=== PATIENT | male | born 1985 | race Caucasian/White ===

== ENCOUNTER 2016-12-15 17:40 | Emergency (ER) | payer SELFPAY | END 2016-12-15 20:46 | disposition home or self-care (01) | LOC: ER1 17:40 | DX: S16.1XXA Strain of muscle, fascia and tendon at neck level, initial encounter (principal); V49.40XA Driver injured in collision with unspecified motor vehicles in traffic accident, initial encounter; Y92.410 Unspecified street and highway as the place of occurrence of the external cause | CPT/HCPCS: 72125; 96372; 99283; J1885 ==